=== PATIENT | male | born 2000 | race Caucasian/White ===

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

== ENCOUNTER 2020-07-20 09:13 | Outpatient (CLI) | payer BC ==
--- NOTE | 2020-07-20 09:51 | RAD ---
PA AND LATERAL CHEST: Date: 07/20/2020 HISTORY: Dyspnea. FINDINGS: Heart size is within normal limits. Mediastinal structures appear unremarkable. Lungs appear clear of infiltrates. No significant bony findings. IMPRESSION: No active intrathoracic disease. POS: [facility]
== END 2020-07-20 09:14 | disposition home or self-care (01) ==
LOC: BICRAD 09:13
PROVIDERS: ATTEND Internal Medicine Pulmonary Disease
DX: R06.00 Dyspnea, unspecified (principal)
CPT/HCPCS: 71046